=== PATIENT | male | born 1940 | race Caucasian/White ===

== ENCOUNTER 2018-09-15 08:48 | Inpatient (IN) | payer OTHER ==
[~2018-09-15] VITALS: Ht 177.8 cm; Wt 78.5 kg
--- NOTE | ~2018-09-15 | PROC ---
[address] [address] PROCEDURE REPORT Name: KASIA ZAPATA JR Room: [address]R.#: [id number] Admission: 09/15/18 Attend Phys: Tarik Faye MD, Discharge: 09/19/18 Date of : 38 Report #: [id number] THIS REPORT FOR: //name// Please refer to the History and Physical performed in the physician's office. By: 0701Medical Records Staff CHARIS /RONEY
[~2018-09-15 08:48] MED LIST: ALLOPURINOL 10100 M1 PO; ELIQUIS5 MG PO; PACERONE 200 M200 M1 PO
[2018-09-15 09:40] VITALS: BP 109/78
[2018-09-15] MEDS ORDERED: LOPRESSOR50 PO (10:44)
[2018-09-15] MEDS ORDERED: CARTIA XT180 M1 PO (10:45)
[2018-09-15] MEDS ORDERED: LYRICA 50 MG50 MG PO (10:46)
[2018-09-15] MEDS ORDERED: XALATAN2.5 ML OPHTHALMIC (10:46)
[2018-09-15] MEDS ORDERED: MULTI VITAMIN1 EACH PO (10:46)
--- NOTE | 2018-09-15 11:05 | NUR ---
ASSUMED CARE OF PT @ 0940.PT IS A/O X4,VSS,TRACING AFIB ON THE MONITOR.NEW IV INSERTED IN RIGHT FOREARM AND SALINE LOCKED.PT IS CALM AND COOPERATIVE WITH NO C/O PAIN.PICTURE TAKEN OF WOUND ON LEFT BIG TOE.PT IS UP WITH ASSIST OF ONE AND CANE.CALL LIGHT AND FALL PRECAUTIONS IN PLACE.WILL CONTINUE TO MONITOR.
[2018-09-15 11:56] VITALS: BP 120/81
--- NOTE | 2018-09-15 12:01 | NUR ---
WOUND CARE NOTE: CONSULT RECEIVED FOR WOUND TO LEFT GREAT TOE PATIENT PRESENTS WITH FULL THICKNESS NEUROPATHIC ULCER TO THE LEFT GREAT TOE AT THE PLANTAR SURFACE. PATIENT ADMITS TO THERE BEING A CALLUS THERE AND IT CAME OFF REVEALING THE ULCERATION. WOUND MEASURES 0.7X0.8X0.3. NOEMY-WOUND CALLUSED. WOUND BED IS MOIST, PINK, NON-GRANULAR. DRAINING SMALL AMOUNTS OF SEROUS DRAINAGE. CLEANSED WOUND WITH WOUND CLEANSER, PATTED DRY. APPLIED AQUACEL AG INTO WOUND BED AND SECURED WITH GAUZE THEN TAPE. APPEARS THAT PATIENT HAS HALLUX VALGUS AT THIS AREA WHICH MAY CONTRIBUTE TO THE ULCERATION IN ADDITION TO THE NEUROPATHY. EDUCATED PATIENT ON DRESSING SELECTION, COMMUNICATED UNDERSTANDING. RECOMMEND FOLLOW UP WITH POWER LINE INSTALLER FOR WOUND CARE AND CALLUS MANAGEMENT ENCOURAGE GOOD NUTRITION/HYDRATION DAILY DRESSING CHANGES DURING HOSPITAL STAY
[2018-09-15 12:08] LABS: HEMATOCRIT 42.6 % (42.0-52.0); HEMOGLOBIN 14.4 gm/dL (14.0-18.0); MCHC 33.7 g/dL (28.0-37.0); MCV 94.9 fL (80.0-100.0); MPV 8.1 fl. (7.2-11.1); NUCLEATED RBCS 0 /100WBC; PLATELET COUNT* 296 thou/uL (150-400); RBC 4.49 mil/uL (4.50-6.00); RDW-CV 14.7 % (10.5-14.5); WBC 13.1 thou/uL (4.0-11.0)
[2018-09-15 12:19] LABS: ALBUMIN 2.6 g/dL (3.4-5.0); CALCIUM 8.6 mg/dL (8.5-10.1); CREATININE 1.1 mg/dL (0.6-1.3); TOTAL BILIRUBIN 0.4 mg/dL (<0.1-1.0); TOTAL PROTEIN 6.1 g/dL (6.4-8.2)
[2018-09-15 12:55] LABS: ABSOLUTE LYMPHOCYTES 4.6 thou/uL (0.8-5.3); ABSOLUTE MONOCYTES 0.7 thou/uL (0.0-1.2); ABSOLUTE NEUTROPHILS 7.9 thou/uL (1.6-8.1)
[2018-09-15 12:56] LABS: PLATELET ESTIMATE ADEQUATE
--- NOTE | 2018-09-15 13:11 | EKG ---
[place] [address] ELECTROCARDIOGRAM REPORT Name: KASIA ZAPATA JR Room: [address] ADM IN M.R.#: [id number] Admission: 09/15/18 Attend Phys: Tarik Faye MD, Discharge: Date of : 36 Report #: [id number] THIS REPORT FOR: //name// [facility] Test Date: 2018-09-15 Test Time: 11:29:57 Pat Name: KASIA ZAPATA Department: Room: [address] Gender: M Quotation Clerk: : 1940 Requested By: Tarik Faye Order Number: [id number] Reading MD: Tarik Faye Measurements Intervals [place] Rate: 83 P: MN: QRS: -47 QRSD: 155 T: -34 QT: 374 QTc: 440 Interpretive Statements Atrial fibrillation Right bundle branch block LVH with IVCD and secondary repol abnrm Compared to ECG 06/23/2015 10:04:06 Intraventricular conduction delay now present Early repolarization now present Electronically Signed On 09-15-2018 13:11:47 CDT by Tarik Faye [email or web address] <ELECTRONICALLY SIGNED> By: Tarik Faye MD, FACC 09/15/18 1311 1129 1129 Tarik Faye MD, [facility] /EPI
--- NOTE | 2018-09-15 15:23 | 2DMMODE ---
[place] [address] 2 D/M-MODE ECHOCARDIOGRAM Name: KASIA ZAPATA JR Room: [address] IN [facility]#: [id number] Admission: 09/15/18 Attend Phys: Tonja De La Rosa Discharge: Date of : 36 Date of Service: 09/15/18 1522 Report #: [id number] THIS REPORT FOR: //name// APPROVED REPORT Study performed: 09/15/2018 13:11:27 EXAM: Comprehensive 2D, Doppler, and color-flow Echocardiogram Patient Location: In-Patient Room #: [facility] Status: routine BSA: 2.00 HR: 90 bpm BP: 109/78 mmHg Rhythm: Atrial Fibrillation Other Information Study Quality: Good Indications Atrial Fibrillation 2D Dimensions IVSd: 13.17 (7-11mm) LVOT Diam: 20.89 (18-24mm) LVDd: 40.92 mm PWd: 12.19 (7-11mm) Ascending Ao: 36.21 (22-36mm) LVDs: 35.96 (25-40mm) Aortic Root: 34.21 mm Volumes Left Atrial Volume (Systole) LA ESV Index: 51.20 mL/m2 Aortic Valve AoV Peak Kemal.: 0.90 m/s AO Peak Gr.: 3.22 mmHg LVOT Max P.03 mmHg AO Mean Gr.: 1.90 mmHg LVOT Mean P.51 mmHg LVOT Max V: 0.51 m/s AO V2 VTI: 12.21 cm LVOT Mean V: 0.33 m/s ALVARO (VTI): 2.42 cm2 LVOT V1 VTI: 8.64 cm Mitral Valve MV Decel. Time: 135.66 ms MV PHT: 39.34 ms MVA (PHT): 5.59 cm2 [place] [address] 2 D/M-MODE ECHOCARDIOGRAM Name: KASIA ZAPATA JR Room: [address] IN [facility].#: [id number] Admission: 09/15/18 Attend Phys: Tonja De La Rosa Discharge: Date of : 36 Date of Service: 09/15/18 1522 Report #: [id number] TDI Medial E' Kemal.: 0.11 m/s Lateral E' Kemal.: 0.13 m/s Pulmonary Valve PV Peak Kemal.: 0.60 m/s PV Peak Gr.: 1.43 mmHg Tricuspid Valve RAP Estimate: 5.00 mmHg TR Peak Gr.: 18.28 mmHg RVSP: 23.00 mmHg PA Pressure: 23.00 mmHg Left Ventricle The left ventricle is normal size. There is diffuse hypokinesis of left ventricular wall motion. Mild concentric left ventricular hypertrophy. Left ventricular systolic function is moderate to severely decreased. LVEF is 30%. This study is not technically sufficient to allow evaluation of the LV diastolic function due to atrial fibrillation. Right Ventricle The right ventricle is normal size. The right ventricular systolic function is normal. Atria Left atrium is moderately dilated. The right atrium size is normal. Aortic Valve Mild aortic valve sclerosis. Trace aortic regurgitation. There is no aortic valvular stenosis. Mitral Valve The mitral valve is normal in structure. Trace mitral regurgitation. No evidence of mitral valve stenosis. Tricuspid Valve The tricuspid valve is normal in structure. Mild tricuspid regurgitation. Pulmonic Valve The pulmonary valve is normal in structure. Trace pulmonic regurgitation[place] [address] 2 D/M-MODE ECHOCARDIOGRAM Name: KASIA ZAPATA JR Room: [address] IN ..#: [id number] Admission: 09/15/18 Attend Phys: Tonja De La Rosa Discharge: Date of : 36 Date of Service: 09/15/18 1522 Report #: [id number] The aortic root is normal in size. IVC is normal in size and collapses >50% with inspiration. Pericardium There is no pericardial effusion. <Conclusion> The left ventricle is normal size. Mild concentric left ventricular hypertrophy. Left ventricular systolic function is moderate to severely decreased. LVEF is 30%. This study is not technically sufficient to allow evaluation of the LV diastolic function due to atrial fibrillation. The right ventricle is normal size. Left atrium is moderately dilated. Mild aortic valve sclerosis. Trace aortic regurgitation. There is no aortic valvular stenosis. The mitral valve is normal in structure. Trace mitral regurgitation. The tricuspid valve is normal in structure. Mild tricuspid regurgitation. IVC is normal in size and collapses >50% with inspiration. There is no pericardial effusion. There is diffuse hypokinesis of left ventricular wall motion. <ELECTRONICALLY SIGNED> By: Tarik Faye MD, [facility] 09/15/18 1522 1522 1522 Tarik Faye MD, FACC /INF
[2018-09-15 15:58] VITALS: BP 119/74
--- NOTE | 2018-09-15 17:57 | NUR ---
VSS.CARDIAC MONITORING IN PLACE WITH NO CHANGES.NO C/O PAIN.IV PATENT AND SALINE LOCKED.PT SAW WOUND CARE TODAY WITH ORDERS FOR WOUND CARE OF LEFT BIG TOE.CXR,ECHO,EKG, AND CT OF HEAD AND THORACIC COMPLETED TODAY.PT INFORMED OF PLAN OF CARE AND COMMUNICATES UNDERSTANDING.PT AMBULATED IN ROOM WITH CANE AND WORKED WITH PHYSICAL THERAPY.HOURLY ROUNDING COMPLETED FOR PT SAFETY.CALL LIGHT AND FALL PRECAUTIONS IN PLACE.WILL CONTINUE TO MONITOR FOR DURATION OF SHIFT.
[2018-09-15 20:00] VITALS: BP 126/77
[2018-09-16] VITALS: BP 115/85
[2018-09-16 04:00] VITALS: BP 120/68
--- NOTE | 2018-09-16 07:45 | NUR ---
ASSUMED PT CARE AT 1930. ASSESSMENT COMPLETED CHARTED. ABLE TO MAKE NEEDS KNOWN. NO C/O PAIN OR DISCOMFORT. NOT VERY HAPPY THAT HE HAS TO BE WALKED TO THE BATHROOM, BUT PT IS UNSTEADY ON FEET AT TIMES. PT RESTING IN BED AT THIS TIME. TM.
[2018-09-16 08:00] VITALS: BP 128/87
--- NOTE | 2018-09-16 10:00 | NUR ---
RECEIVED REPORT AND ASSUMED CARE OF PT AT 0730.PT IS A/OX4.TRACING AFIB ON THE MONITOR WITH CONTROLLED RATE.UP WITH CANE.RT GREAT TOE WOUND PRESENT .DSG CHANGED.ALINA /CARDIOVERSION PLAN FOR TUESDAY.CONSENT NEEDS TO BE OBTAIN BEFORE PROCEDURE.ON RA.IV PATENT AND SALINE LOCKED.CALL LIGHT AND FALL PRECAUTIONS IN PLACE.WILL CONTINUE TO MONITOR.
[2018-09-16 12:00] VITALS: BP 110/80
[2018-09-16 16:20] VITALS: BP 101/69
--- NOTE | 2018-09-16 17:54 | NUR ---
VSS.PT PATY/OX4.TRACING AFIB ON THE MONITOR RATE CONTROLLED.ON .DSG CHANGED.PLAN ALINA/CARDIOVERSION ON TUESDAY.HEART HEALTHY DIET.UP WITH CANE.CALL LIGHT AND FALL PRECAUTION IN PLACE.HRLY ROUNDING COMPLETED.WILL CONTINUE TO MONITOR.
[2018-09-16 20:00] VITALS: BP 128/85
[2018-09-17 00:02] VITALS: BP 124/76
[2018-09-17 04:00] VITALS: BP 119/59
[2018-09-17 08:00] VITALS: BP 123/78
--- NOTE | 2018-09-17 08:00 | NUR ---
ASSUMED PT CARE AT 1930. ASSESSMENT COMPLETED CHARTED. ABLE TO MAKE NEEDS KNOWN. UP AD FRANKY, NO C/O PAIN OR DISCOMFORT. VSS. STILL TRACING AFIB ON THE MONITOR. WILL CONTINUE TO MONITOR.
[2018-09-17 12:31] VITALS: BP 126/79
--- NOTE | 2018-09-17 12:43 | CON ---
[address] [address] CONSULTATION Name: KASIA ZAPATA JR Room: [address] IN .R.#: [id number] Admission: 09/15/18 Attend Phys: Tarik Faye MD, Discharge: Date of : 38 Report #: [id number] THIS REPORT FOR: //name// CC: Tarik Deutsch NEUROLOGY CONSULTATION HISTORY OF PRESENT ILLNESS: The patient is an 78-year-old male who states he has significant difficulty with his balance. After speaking with the patient, the patient states that for the past 2 or 3 years, he has had difficulty with his feet. At one point, his feet were cold. He has also had paresthesias in the feet and sharp stabbing pains in the feet. Some of this has improved with time. Last year, the patient states he was seen at [facility] most likely by a neurologist. He had an EEG. He had an EMG. The patient was asked to discontinue amiodarone. He was told that once he discontinue this drug, the pain in his feet would improve. The patient is uncertain of what any of these tests showed; however, when the patient did discontinue amiodarone, some of the paresthesias in his feet got better. The patient states that prior to developing the shingles last fall, he had been running up to a mile a day. Now because of the shingles, he is sedentary and has been sedentary for several months. He has also been to pain management and had perhaps an intercostal block and a thoracic epidural. He states that he had 2 shots, one in the back and one in the ribs. PAST MEDICAL HISTORY: Atrial fibrillation, hypertension, gout, shingles. PAST SURGICAL HISTORY: Unremarkable. MEDICATIONS: Amiodarone 600 mg daily, Eliquis 5 mg b.i.d., Cardizem CD 180 mg daily, latanoprost at bedtime, metoprolol 50 mg b.i.d., Lyrica 75 mg b.i.d., allopurinol 200 mg daily. ALLERGIES: None. VITAL SIGNS: None recorded. LABORATORY WORK: Including a CBC and chemistry panel are pending. No imaging studies have been done. NEUROLOGIC EXAMINATION: Cranial nerves 2-12 are grossly intact. Motor exam demonstrates symmetrical strength in all 4 extremities. The patient has atrophy of the bilateral first dorsal interosseous and abductor pollicis brevis. He has diminished ankle dorsi and plantar flexion. Reflexes are trace. Plantar responses are flexor. Coordination reveals intact [id number]. Sensory exam demonstrates diminished light touch to just below the knees and he has diminished proprioception [place] [address] CONSULTATION Name: KASIA ZAPATA JR Room: [address] IN ..#: [id number] Admission: 09/15/18 Attend Phys: Tarik Faye MD, Discharge: Date of : 38 Report #: [id number] IMPRESSION: I have asked the patient to sign a release of information for the Neurology consult and any testing that was done by Dr. Miner. The patient has already had an EMG and I suspect he may have peripheral neuropathy with a component of deconditioning. I am going to order physical and occupational therapy for him. In addition, I am going to look for the most common treatable causes of neuropathy and order a B12, TSH, and serum protein electrophoresis. The patient has not had any imaging studies done. A CT scan of the head and CT scan of the thoracic spine will be done. The MRI scanner is not functioning and so these diagnostic studies will need to be done by CT scan. I thank you for your kind referral of the patient. <ELECTRONICALLY SIGNED> By: Bri Downey DO 09/17/18 1243 1025 [id number] Downey DO /nt
[2018-09-17 15:39] VITALS: BP 105/68
--- NOTE | 2018-09-17 16:34 | NUR ---
ASSUMED CARE OF PATIENT AT 0730. ALERT AND ORIENTED X 4. VITAL SIGNS STABLE ON ROOM AIR. AFIB ON MONITOR. AFEBRILE. PERRLA. UP WITH STAND BY ASSISTANCE. IV PATENT AND SALINE LOCKED. DENIES PAIN AND NAUSEA AT THIS TIME. BED LOCKED AND IN LOWEST POSITION. FALL PRECAUTIONS IN PLACE AND BED ALARM ON. HOURLY ROUNDS MAINTAINED THROUGHOUT THE SHIFT. CALL LIGHT WITHIN REACH. NURSING WILL CONTINUE TO MONITOR.
[2018-09-17 20:00] VITALS: BP 114/79
[2018-09-18] VITALS (7 sets, daily range): BP systolic 86–124; BP diastolic 51–95
--- NOTE | 2018-09-18 06:09 | NUR ---
ASSUMED PT CARE AT 1930. ASSESSMENT COMPLETED CHARTED. ABLE TO MAKE NEEDS KNOWN. UP AD FRANKY. NO C/O PAIN OR DISCOMFORT. NPO SINCE MIDNIGHT FOR ALINA AND CARDIOVERSION SINCE STILL IN AFIB. WILL CONTINUE TO MONITOR.
--- NOTE | 2018-09-18 07:25 | NUR ---
CHANGE OF SHIFT, BEDSIDE REPORT GIVEN PATIENT SEEN IN BED, ASLEEP ASSUMED PATIENT CARE
--- NOTE | 2018-09-18 11:48 | NUR ---
Pt out of room at ALINA, per nurse, Pt will likely dc later this evening.
--- NOTE | 2018-09-18 16:11 | NUR ---
WOUND NURSE: PATIENT SEEN TO ADDRESS ULCER ON THE PLANTAR SURFACE OF THE LEFT GREAT TOE. PRESENTS A SUPERFICIAL LESION WITH PARTIAL THICKNESS TISSUE LOSS AND CALLOUS TO THE PERIWOUND AREA. AFFECTED AREA MEASURES 0.8 X 0.5 X 0.1 CM; CONTAINS SMALL AMOUNT OF SEROUSANGUINOUS DRAINAGE. PATIENTS DOES NOT REPORT PAIN TO THE AFFECTED AREA. CLEANSED WITH WOUND CLEANSER AND GAUZE, THEN APPLIED AQUACEL AG TO WOUND, THEN WRAPPED WITH CONFORMING GAUZE, AND SECURED WITH TAPE. INSTRUCTED ON METHODS OF OFFLOADING AND OTHER MEASURES TO PROMOTE HEALING. PATIENT STATES HE UNDERSTANDS.
--- NOTE | 2018-09-18 17:12 | TEE ---
[place] [address] TRANSESOPHAGEAL ECHOCARDIOGRAM Name: KASIA ZAPATA JR Room: [address] IN [facility]#: [id number] Admission: 09/15/18 Attend Phys: Tonja De La Rosa Discharge: Date of : 38 Date of Service: 09/18/18 1712 Report #: [id number] THIS REPORT FOR: //name// APPROVED REPORT Study performed: 09/18/2018 11:46:48 EXAM: Transesophageal Echocardiogram Patient Location: In-Patient Room #: [facility] Status: routine BSA: 2.00 HR: 91 bpm BP: 131/93 mmHg Rhythm: Atrial Fibrillation Other Information Study Quality: Good Indications Atrial Fibrillation Echo Enhancing Agent Indication: Rule out Shunt Agent(s) / Amount(s) Used: Agitated Saline 10 cc Procedure After obtaining informed consent, patient underwent transesophageal echo in the [employer]. Type of Sedation : Conscious Sedation Sedation was administered by Iza Martinez RN. Sedation start time: 1158 Case end Time: 1210 Sedation was achieved intravenously with: Versed (4) Fentanyl (100) Transesophageal probe was inserted and advanced into esophagus without difficulty by Marcos Ramsey MD, FACC. Echo enhancement indication: R/O Septal defect. Echo enhancement agent administered: Agitated Saline The ALINA was performed without complications. Synchronized Cardioversion acheived with 300 Joules after 1 attempt(s). Rhythm following Synchronized Cardioversion: Normal Sinus Rhythm Throughout the procedure, the blood pressure, pulse oximetry, cardiac rhythm, and rate were monitored. The patient tolerated the procedure without adverse [place] [address] TRANSESOPHAGEAL ECHOCARDIOGRAM Name: KASIA ZAPATA JR Room: [address]#: [id number] Admission: 09/15/18 Attend Phys: Tonja De La Rosa Discharge: Date of : 38 Date of Service: 09/18/18 1712 Report #: [id number] from conscious sedation was uneventful and vital signs were stable. Left Ventricle The left ventricle is normal size. There is global hypokinesis of the left ventricle. There is normal left ventricular wall thickness. Left ventricular systolic function is moderate to severely decreased. LVEF is 30%. Right Ventricle The right ventricle is normal size. The right ventricular systolic function is normal. Atria Left atrium is moderately dilated. No thrombus is visualized in the left atrium or appendage. Interatrial septum is intact without evidence of ASD or PFO. The right atrium size is normal. Aortic Valve Mild aortic valve sclerosis. Trace aortic regurgitation. Mitral Valve The mitral valve is normal in structure. Mild mitral regurgitation. Tricuspid Valve Trace tricuspid regurgitation. Pulmonic Valve Pulmonic valve is not well visualized. Great Vessels The aortic root is normal in size. Pericardium There is no pericardial effusion. <Conclusion> The left ventricle is normal size. There is normal left ventricular wall thickness. Left ventricular systolic function is moderate to severely decreased. LVEF is 30%. There is global hypokinesis of the left ventricle. Left atrium is moderately dilated. No thrombus is visualized in [place] [address] TRANSESOPHAGEAL ECHOCARDIOGRAM Name: KASIA ZAPATA JR Room: [address] IN ..#: [id number] Admission: 09/15/18 Attend Phys: Tonja De La Rosa Discharge: Date of : 36 Date of Service: 09/18/181711 Report #: [id number] appendage. Interatrial septum is intact without evidence of ASD or PFO. Trace aortic regurgitation. Mild mitral regurgitation. Trace tricuspid regurgitation. <ELECTRONICALLY SIGNED> By: Marcos Ramsey MD, FACC 09/18/181711 11 11 Marcos Ramsey MD, FACC /INF
[2018-09-19] VITALS: BP 105/69
[2018-09-19 04:00] VITALS: BP 118/65
--- NOTE | 2018-09-19 05:27 | NUR ---
ASSUMED CARE OF PT AFTER REPORT AT 1930. PT A&OX4. VSS. PHSYICAL ASSESSMENT COMPLETED AND CHARTED. PT ON RA. PT TRACING SR/SB/BBB ON TELE. PT UPADLIB TO RESTROOM. PT DENIES ANY PAIN OR DISCOMFORT. PT RESTED WELL ON BED. HOURLY ROUNDING OBSERVED. CALL LIGHT WITHIN REACH.
[2018-09-19 08:00] VITALS: BP 102/69
--- NOTE | 2018-09-19 10:55 | NUR ---
RECEIVED REPORT AND ASSUMED CARE OF PT AT 0735.PT IS A/OX4.TRACING SB WITH BBB ON MONITOR.A/OX4.IV PATENT AND SALINE LOCKED.WEAKNESS ON BL LOWER EXTREMITIES PRESENT.NEURO ON BOARD.PT WAS CARDIOVERTED YESTERDAY TO AFIB.WOUND PRESENT ON RT GREAT TOE.DSG CHANGED.UP WITH WALKER/CANE.NO OTHER SKIN ISSUES.NO COMPLAINTS OF PAIN.HRLY ROUNDING COMPLETED.CALL LIGHT AND FALL PRECAUTIONS IN PLACE.WILL CONTINUE TO MONITOR.
[2018-09-19 11:50] VITALS: BP 90/53
[2018-09-19] MEDS ORDERED: PACERONE 200 M200 M1 PO (12:32)
[2018-09-19 12:47] VITALS: BP 90/53
[2018-09-19 13:07] LABS: GLOBULIN TOTAL 2.8 g/dL (2.2-3.9); M-SPIKE Not Observed g/dL (Not Observed)
[2018-09-19 13:08] VITALS: BP 90/53
--- NOTE | 2018-09-19 14:10 | NUR ---
PT OK TO DISCHARGE.ALL DISCHARGE PAPER WORK COMPLETED.DISCHARGE EDUCATION PROVIDED ON FOLLOW UP AND MEDS.NEW SCRIPTS GIVEN WITH EDUCATION PRINTED.ALL PERSONAL BELONGINGS HANDED OVER TO PT.IV AND HEART MONITOR TAKEN OUT AND RETURNED TO NURSING STATION.PT IS GETTING READY TO GO HOME WITH HIS .
--- NOTE | 2018-09-20 10:15 | D ---
[address] [address] DISCHARGE SUMMARY Name: KASIA ZAPATA JR Room: [address] IN M.R.#: [id number] Admission: 09/15/18 Attend Phys: Tarik Faye MD, Discharge: 09/19/18 Date of : 38 Report #: [id number] THIS REPORT FOR: //name// CC: Tarik Deutsch DATE OF SERVICE: 09/19/2018 FINAL DISCHARGE DIAGNOSES: 1. Persistent atrial fibrillation. 2. Nonischemic cardiomyopathy. PROCEDURES: On 09/18/2018 - ALINA/cardioversion. HOSPITAL COURSE: The patient is a very pleasant 78-year-old male with a history of recurrent atrial fibrillation. His last episode occurred associated with a prolonged episode of shingles. He did not respond to wgh-dj-plvtxmei rate modulation and demonstrated persistent atrial fibrillation with a controlled ventricular response on diltiazem and metoprolol. He was anticoagulated with Eliquis. The patient was hospitalized over the weekend and loaded with amiodarone. He underwent a ALINA cardioversion on 09/18/2018, with successful reversion to a sinus mechanism, in which he has remained. The patient is feeling a bit better, though he is still weak. 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 Therefore, I will plan to send the patient home on amiodarone, which I would plan to taper. His initial dose on discharge will be 400 mg b.i.d. with continuation of diltiazem extended release 180 mg daily and metoprolol 50 mg daily with Eliquis 5 mg b.i.d. as before. I will plan to have him see the nurse practitioner in 1 week for reduction of amiodarone dosage. I will plan to see him in 4-6 weeks with an echocardiogram at that juncture. <ELECTRONICALLY SIGNED> By: Tarik Faye MD, [facility] 09/20/18 1015 1155 1222Jooscar Faye MD, FACC /nt
== END 2018-09-19 14:18 | disposition home or self-care (01) | DRG 309 ==
LOC: M.2W 08:48
PROVIDERS: Psychiatry & Neurology Neurology; ADMIT Internal Medicine
PROC: B24BZZ4 Ultrasonography of Heart with Aorta, Transesophageal (ICD-10-PCS; principal; 2018-09-18)
PROC: 5A2204Z Restoration of Cardiac Rhythm, Single (ICD-10-PCS; principal; 2018-09-18)
DX: I48.1 Persistent atrial fibrillation (principal); I50.42 Chronic combined systolic (congestive) and diastolic (congestive) heart failure; D68.59 Other primary thrombophilia; E44.0 Moderate protein-calorie malnutrition; G61.81 Chronic inflammatory demyelinating polyneuritis; G62.9 Polyneuropathy, unspecified; I42.9 Cardiomyopathy, unspecified; I48.91 Unspecified atrial fibrillation; Z68.24 Body mass index [BMI] 24.0-24.9, adult; M10.9 Gout, unspecified; I10 Essential (primary) hypertension; Z79.899 Other long term (current) drug therapy

== ENCOUNTER → 2018-10-04 | Outpatient (CLI) | payer OTHER ==
[~2018-10-04] MED LIST changes: +CARTIA XT180 M1 PO; +LOPRESSOR50 PO; +LYRICA 50 MG50 MG PO; +MULTI VITAMIN1 EACH PO; +XALATAN2.5 ML OPHTHALMIC
--- NOTE | 2018-10-04 13:32 | 2DMMODE ---
[place] [address] 2 D/M-MODE ECHOCARDIOGRAM Name: KASIA ZAPATA JR Room: [facility]#: [id number] Admission: 10/04/18 Attend Phys: Tonja De La Rosa Discharge: Date of : 36 Date of Service: 10/04/18 1331 Report #: [id number] THIS REPORT FOR: //name// APPROVED REPORT Study performed: 10/04/2018 09:57:38 EXAM: Comprehensive 2D, Doppler, and color-flow Echocardiogram Patient Location: Out-Patient BSA: 1.95 HR: 58 bpm BP: 109/78 mmHg Other Information Study Quality: Good Indications CAD 2D Dimensions IVSd: 12.46 (7-11mm) LVOT Diam: 20.84 (18-24mm) LVDd: 47.86 mm PWd: 9.86 (7-11mm) Ascending Ao: 35.13 (22-36mm) LVDs: 30.61 (25-40mm) Aortic Root: 29.73 mm Volumes Left Atrial Volume (Systole) LA ESV Index: 26.60 mL/m2 Aortic Valve AoV Peak Kemal.: 1.14 m/s AO Peak Gr.: 5.20 mmHg LVOT Max P.11 mmHg AO Mean Gr.: 3.02 mmHg LVOT Mean P.07 mmHg LVOT Max V: 0.73 m/s AO V2 VTI: 23.28 cm LVOT Mean V: 0.48 m/s ALVARO (VTI): 2.18 cm2 LVOT V1 VTI: 14.86 cm Mitral Valve E/A Ratio: 0.72 MV Decel. Time: 300.43 ms MV E Max Kemal.: 0.41 m/s MV PHT: 87.13 ms MVA (PHT): 2.53 [place] [address] 2 D/M-MODE ECHOCARDIOGRAM Name: KASIA ZAPATA JR Room: [facility]#: [id number] Admission: 10/04/18 Attend Phys: Tonja De La Rosa Discharge: Date of : 36 Date of Service: 10/04/18 1331 Report #: [id number] TDI E/Lateral E': 5.13 E/Medial E': 6.83 Medial E' Kemal.: 0.06 m/s Lateral E' Kemal.: 0.08 m/s Pulmonary Valve PV Peak Kemal.: 0.74 m/s PV Peak Gr.: 2.21 mmHg Tricuspid Valve RAP Estimate: 5.00 mmHg TR Peak Gr.: 21.60 mmHg RVSP: 26.60 mmHg PA Pressure: 26.60 mmHg Left Ventricle The left ventricle is normal size. There is global hypokinesis of the left ventricle. There is normal left ventricular wall thickness. Left ventricular systolic function is mildly decreased. LVEF is 45-50%. Grade I - abnormal relaxation pattern. Right Ventricle The right ventricle is normal size. The right ventricular systolic function is normal. Atria The left atrium size is normal. The right atrium size is normal. Aortic Valve Mild aortic valve sclerosis. Mild aortic regurgitation. There is no aortic valvular stenosis. Mitral Valve The mitral valve is normal in structure. Mild mitral regurgitation. No evidence of mitral valve stenosis. Tricuspid Valve The tricuspid valve is normal in structure. Mild tricuspid regurgitation. estimate pa pressure 30 mm Hg Pulmonic Valve The pulmonary valve is normal in structure. Mild pulmonic regurgitation. Great Vessels The aortic root is normal in size. IVC [place] [address] 2 D/M-MODE ECHOCARDIOGRAM Name: KASIA ZAPATA JR Room: [facility]#: [id number] Admission: 10/04/18 Attend Phys: Tonja De La Rosa Discharge: Date of : 36 Date of Service: 10/04/18 1331 Report #: [id number] collapses >50% with inspiration. Pericardium There is no pericardial effusion. <Conclusion> LVEF is 45-50%. Mild aortic regurgitation. Mild mitral regurgitation. Mild aortic valve sclerosis. <ELECTRONICALLY SIGNED> By: Etienne Adams MD, [facility] 10/04/18 133 133 30 Etienne Adams MD, [facility] /INF
== END ==
LOC: M.CRD 09:43
DX: I08.8 Other rheumatic multiple valve diseases (principal); I25.10 Atherosclerotic heart disease of native coronary artery without angina pectoris; I50.1 Left ventricular failure, unspecified

== ENCOUNTER 2019-05-14 07:33 | Observation (INO) | payer OTHER ==
[2019-05-14] VITALS (7 sets, daily range): BP systolic 102–177; BP diastolic 60–90
[~2019-05-14] VITALS: Ht 177.8 cm; Wt 81.6 kg
[2019-05-14 08:16] LABS: HEMATOCRIT 45.2 % (42.0-52.0); HEMOGLOBIN 15.5 gm/dL (14.0-18.0); MCH 32.8 pg (26.0-34.0); MCHC 34.4 g/dL (28.0-37.0); MCV 95.3 fL (80.0-100.0); MPV 8.2 fl. (7.2-11.1); RBC 4.74 mil/uL (4.50-6.00); RDW-CV 13.7 % (10.5-14.5)
[2019-05-14 08:22] LABS: ANION GAP 11 mmol/L (7-16); BUN 15 mg/dL (7-18); CALCIUM 8.4 mg/dL (8.5-10.1); CHLORIDE 103 mmol/L (98-107); CO2 25 mmol/L (21-32); CREATININE 1.3 mg/dL (0.6-1.3); GLUCOSE 167 mg/dL (70-99); POTASSIUM 3.8 mmol/L (3.5-5.1); SODIUM 139 mmol/L (136-145)
[2019-05-14 08:33] LABS: ALBUMIN 3.4 g/dL (3.4-5.0); ALKALINE PHOSPHATASE 98 U/L (46-116); CHOLESTEROL 180 mg/dL (<200); HDL CHOLESTEROL 42 mg/dL (>40); LDL CHOLESTEROL 113 mg/dL (<100); SGOT 40 U/L (15-37); SGPT 50 U/L (30-65); TC:HDL 4.3 Ratio (Not establshd); TOTAL BILIRUBIN 0.4 mg/dL (<0.1-1.0); TOTAL PROTEIN 7.5 g/dL (6.4-8.2); TRIGLYCERIDE 129 mg/dL (<150); VLDL 26 mg/dL (<40)
[2019-05-14 08:41] LABS: SERUM ASSESSMENT Clear
--- NOTE | 2019-05-14 17:12 | EKG ---
[place] [address] ELECTROCARDIOGRAM REPORT Name: KASIA ZAPATA JR Room: [address] M.R.#: [id number] Admission: 05/14/19 Attend Phys: Tarik Faye MD, Discharge: Date of : 36 Report #: [id number] THIS REPORT FOR: //name// [facility] Test Date: 2019-05-14 Test Time: 08:10:52 Pat Name: KASIA ZAPATA Department: Room: [facility] Gender: M Document Image Technician: : 1940 Requested By: Tarik Faye Order Number: [id number] Jose MD: Marcos Ramsey Measurements Intervals [place] Rate: 66 P: 35 OR: 166 QRS: -55 QRSD: 166 T: -15 QT: 472 QTc: 495 Interpretive Statements Sinus rhythm Right bundle branch block Left anterior fascicular block Borderline prolonged QT interval Compared to ECG 09/15/2018 11:29:57 Atrial fibrillation no longer present Electronically Signed On 05-14-2019 17:11:33 MANUFACTURING ASSISTANT by Marcos Ramsey [email or web address] <ELECTRONICALLY SIGNED> By: Marcos Ramsey MD, FACC 05/14/19 1711 0810 0810 Marcos Ramsey MD, [facility] /EPI
--- NOTE | 2019-05-14 17:14 | EKG ---
[place] [address] ELECTROCARDIOGRAM REPORT Name: KASIA ZAPATA JR Room: [address] M.R.#: [id number] Admission: 05/14/19 Attend Phys: Tarik Faye MD, Discharge: Date of : 36 Report #: [id number] THIS REPORT FOR: //name// [facility] Test Date: 2019-05-14 Test Time: 11:46:44 Pat Name: KASIA ZAPATA Department: Room: [facility] Gender: M Flooring Sales Manager: : 1940 Requested By: Tarik Faye Order Number: [id number] Jose MD: Marcos Ramsey Measurements Intervals [place] Rate: 72 P: 43 [place]: 159 QRS: -57 QRSD: 164 T: -38 QT: 490 QTc: 537 Interpretive Statements Sinus rhythm Right bundle branch block Left anterior fascicular block Prolonged QT interval Compared to ECG 09/15/2018 11:29:57 Prolonged QT interval now present Atrial fibrillation no longer present Electronically Signed On 05-14-2019 17:14:00 USED BUILDING MATERIALS YARD WORKER by Marcos Ramsey [email or web address] <ELECTRONICALLY SIGNED> By: Marcos Ramsey MD, FACC 05/14/19 1714 1146 1146 Marcos Ramsey MD, [facility] /EPI
[2019-05-15 04:17] LABS: HEMATOCRIT 42.1 % (42.0-52.0); HEMOGLOBIN 14.1 gm/dL (14.0-18.0); MCHC 33.5 g/dL (28.0-37.0); MCV 95.6 fL (80.0-100.0); MPV 8.2 fl. (7.2-11.1); RBC 4.41 mil/uL (4.50-6.00); RDW-CV 13.6 % (10.5-14.5); WBC 15.7 thou/uL (4.0-11.0)
[2019-05-15 04:35] LABS: ALBUMIN 3.2 g/dL (3.4-5.0); CALCIUM 8.1 mg/dL (8.5-10.1); CREATININE 1.2 mg/dL (0.6-1.3); POTASSIUM 4.2 mmol/L (3.5-5.1); TOTAL BILIRUBIN 0.5 mg/dL (<0.1-1.0); TOTAL PROTEIN 6.8 g/dL (6.4-8.2); TROPONIN-I LEVEL 0.1 ng/mL (<0.06)
[2019-05-15 08:41] VITALS: BP 146/85
[2019-05-15 08:43] VITALS: BP 146/85
[2019-05-15] MEDS ORDERED: BRILINTA90 MG PO (12:18)
[2019-05-15] MEDS ORDERED: NITROSTAT0.4 M1 SUBLING (12:21)
--- NOTE | 2019-05-15 14:38 | EKG ---
[place] [address] ELECTROCARDIOGRAM REPORT Name: KASIA ZAPATA JR Room: [address] M.R.#: [id number] Admission: 05/14/19 Attend Phys: Tarik Faye MD, Discharge: 05/15/19 Date of : 36 Report #: [id number] THIS REPORT FOR: //name// [facility] Test Date: 2019-05-15 Test Time: 08:35:29 Pat Name: KASIA PERRINUGHN Department: Room: [facility] Gender: M Machine Sneller: : 1940 Requested By: Tarik Faye Order Number: [id number] Jose MD: Marcos Ramsey Measurements Intervals [place] Rate: 79 P: 47 [place]: 162 QRS: -62 QRSD: 155 T: -33 QT: 416 QTc: 477 Interpretive Statements Sinus rhythm RBBB and LAFB Compared to ECG 05/14/2019 11:46:44 Early repolarization now present Prolonged QT interval no longer present Electronically Signed On 05-15-2019 14:37:37 ULTIMATE HOOPS TRAINER by Marcos Ramsey [email or web address] <ELECTRONICALLY SIGNED> By: Marcos Ramsey MD, [facility] 05/15/19 1437 0835 0835 Marcos Ramsey MD, [facility] /EPI
--- NOTE | 2019-05-15 16:05 | D ---
[address] [address] DISCHARGE SUMMARY Name: KASIA ZAPATA JR Room: [address] Nirmal Still#: [id number] Admission: 05/14/19 Attend Phys: Tarik Faye MD, Discharge: 05/15/19 Date of : 36 Report #: [id number] THIS REPORT FOR: //name// CC: Tarik Deutsch DATE OF SERVICE: 05/15/2019 FINAL DISCHARGE DIAGNOSES: 1. Abnormal nuclear stress test. 2. Coronary artery disease. 3. Status post percutaneous coronary left anterior descending and first diagonal. 4. Persistent atrial fibrillation. 5. Hypertension. 6. Cardiomyopathy. PROCEDURES: 1. 05/14/2019, left heart catheterization, selective coronary arteriography and percutaneous coronary intervention of the left anterior descending and first diagonal with 3 drug-eluting stents deployed. The patient is a very pleasant and active 78-year-old male with a history of persistent atrial fibrillation and cardiomyopathy. Recently, he has noted some dyspnea on exertion and nuclear stress test revealed significant inducible ischemia. In this context, cardiac catheterization was performed, which revealed 80% mid LAD stenosis with 90% first diagonal stenosis. I placed 2 stents in the LAD and one in the diagonal with 0 and 10% residual narrowings and ALEXSANDER 3 flow of the distal vessel. The patient did well post-procedural with an inconsequential increase in troponin to 0.10. Cholesterol was 180, triglycerides 129, HDL 42, LDL 113. Sodium 138, potassium 4.2, BUN 10, creatinine 1.2, glucose 127. DISCHARGE MEDICATIONS: He ambulated in the hallways without difficulty and was discharged to home on allopurinol 200 mg daily, amiodarone 200 mg every other day, apixaban 5 mg b.i.d. to be resumed on 05/16/2019, aspirin 81 mg daily for 2 days, then to be held, diltiazem extended release 180 mg at bedtime, latanoprost eyedrops 1 drop daily, metoprolol tartrate 25 mg daily, multivitamin tablet 1 tablet daily, ticagrelor or Brilinta 90 mg b.i.d., and p.r.n. sublingual nitroglycerin. The patient is scheduled to return to see my nurse practitioner on 05/22/2019 at 1300 at the [place] office and scheduled to return to see me on 06/26/2019 at 1100 at the [facility] [address] DISCHARGE SUMMARY Name: KASIA ZAPATA JR [address] [id number] Admission: 05/14/19 Attend Phys: Tarik Faye MD, Discharge: 05/15/19 Date of : 36 Report #: [id number] Therefore, the patient is discharged to home in stable condition on the aforementioned medications with followup as iterated above. Discharge time is 35 minutes from 11:15 to 11:50 on 05/15/2019. <ELECTRONICALLY SIGNED> By: Tarik Faye MD, FACC 05/15/19 1605 1152 1210Jooscar Faye MD, FACC /nt
--- NOTE | 2019-05-17 13:25 | CARD ---
[address] [address] CARDIAC CATH REPORT Name: KASIA ZAPATA JR Room: [address] Nirmal Still#: [id number] Admission: 05/14/19 Attend Phys: Tarik Faye MD, Discharge: 05/15/19 Date of : 36 Report #: [id number] THIS REPORT FOR: //name// APPROVED REPORT Study performed: 05/14/2019 08:42:50 Patient Details Patient Status: Out-Patient Room #: The patient is a 78 year-old male Event Personnel Carlos Eduardo Mendoza RTR Monitor, Andie Ma RN, Jeb Huynh Holkins, John Business Process Coordinator Procedures Performed Left Heart Cath w/or w/o Coronaries [id number] [facility] THOM Place w/wo Plasty Addl BR DIAG [address] w/wo Plasty Single LAD 517108 Hemostasis w/ Angioseal Indication Dyspnea, Positive stress test Risk Factors Hypercholesterolemia Admission/Lab Medications/Medications given during procedure Fentanyl IV 25 mcg, Midazolam (Versed) IV 1 mg, Lidocaine Subcut 20 ml, Angiomax IV 12 ml, Angiomax IV 28.7 ml per hr, Nitroglycerin IC 200 mcg, Angiomax IV 4 ml, Hydralazine (Apresoline) IV 10 mg, Aspirin PO 162 mg, Ticagrelor PO 180 mg Procedure Narrative The patient was brought electively to the Cardiac Catheterization Laboratory and was prepped and draped in a sterile manner. The left femoral was infiltrated with 2% Lidocaine subcutaneous anesthesia. A [place] 6 FR sheath was inserted into the left femoral artery. Coronary angiography was performed using coronary diagnostic catheters. The right coronary system was accessed and visualized with a Diagnostic JR4 6Fr catheter. The left coronary system was accessed and visualized with a Diagnostic JL4 6Fr catheter. The left ventricle was accessed and visualized with a Diagnostic Pigtail St 6Fr catheter. Left ventricular/Aortic Valve gradient assessed via catheter pullback. Left ventriculogram was performed in PAZ projection. Pre-demployment femoral angiogram was [place] [address] CARDIAC CATH REPORT Name: KASIA ZAPATA JR [address]: [address] [id number] Admission: 05/14/19 Attend Phys: Tarik Faye MD, Discharge: 05/15/19 Date of : 38 Report #: [id number] device was deployed with a 6 Fr Angioseal STS 6Fr. The patient tolerated the procedure well and there were no complications associated with the procedure. There was no hematoma. Intraoperative Conscious Sedation Sedation start time: 0950 Case end Time: 1058 Fentanyl 75 mcg Versed 1 mg Fluoro Time: 16.7 minutes Dose: DAP 799875 cGycm2 2431.88 mGy Contrast Type and Amount: Visipaque 425 ml Diagnostic Cath Left Main 0% narrowing LAD 30% proximal LAD narrowing with 80% tubular mid LAD stenosis and 50% distal LAD narrowing Diagonal 1 90% first diagonal stenosis Circumflex 20 percent ostial circumflex narrowing Right Coronary dominant vessel with 20% proximal narrowing Left Ventriculography The left ventricle is normal in size with normal contractility. The left ventricular ejection fraction is estimated to be 55%. Left ventricular wall motion abnormalities are not present. There is nono mitral insufficiency. Hemodynamics The aortic pressure is 176/76 mmHg with a mean of 111 mmHg. The left ventricular pressure is 170/0 mmHg with a mean of mmHg. The left ventricular end diastolic pressure is 8 mmHg. PCI Technique Lesion Anticoagulation was achieved with Angiomax. Percutaneous coronary intervention was performed on the mid left anterior descending artery segment. The lesion stenosis prior to intervention was 80% with ALEXSANDER 2 flow. A 6F XB LAD 3.5 Guide Catheter was used to engage the Left ostium. A IG: ProwaterFlex 180CM Interventional Guidewire was used to cross the lesion. BALLOON DILATION A Balloon catheter Trek RX 2.25 X 12 was inserted and inflated up to 12.00atm for 10seconds. Additional Inflation: 12.00atm for 8seconds. Additional Inflation: 14.00atm for 10seconds. [place] [address] CARDIAC CATH REPORT Name: KASIA ZAPATA JR Room: [address] Nirmal Still#: [id number] Admission: 05/14/19 Attend Phys: Tarik Faye MD, Discharge: 05/15/19 Date of : 38 Report #: [id number] A drug-eluting stent Xience Joanie 2.25X28 was inserted and inflated up to 12.00atm for 11seconds. Additional Inflation: 14.00atm for 7seconds. Final angiography reveals 0 % stenosis with ALEXSANDER 3 flow. STENT DEPLOYMENT A drug-eluting stent Xience Joanie 2.5X8mm was inserted and inflated up to 10.00atm for 10seconds. Additional Inflation: 12.00atm for 4seconds. POST STENT DEPLOYMENT BALLOON DILATION A Balloon catheter NC Euphora 2.5x12 was inserted and inflated up to 10.00atm for 6seconds. Additional Inflation: 12.00atm for 9seconds. Additional Inflation: 14.00atm for 14seconds. PCI Technique Lesion 2 Percutaneous Coronary Intervention was performed on the first diagnonal branch segment. The lesion stenosis prior to intervention was 90% with ALEXSANDER 3 flow. A 6F XB LAD 3.5 Guide Catheter was used to engage the Left ostium. A IG: ProwaterFlex 180CM Interventional Guidewire was used to cross the lesion. Balloon Dilation A Balloon catheter Mini Trek RX 2.0 X 8 was inserted and inflated up to 12.00atm for 10seconds. Additional Inflation: 16.00atm for 10seconds. Additional Inflation: 17.00atm for 9seconds. Stent Deployment A drug-eluting stent [place] RX Stent 2.0X8mm was inserted and inflated up to 8.00atm for 8seconds. Additional Inflation: 9.00atm for 4seconds. Final angiography reveals 10 % stenosis with ALEXSANDER 3 flow. Conclusion #1 significant coronary artery disease characterized by the following: A 30% proximal LAD narrowing with 80% tubular mid vessel stenosis and 50% distal narrowing; there was 90% stenosis of the first diagonal branch B 20% ost[place] [address] CARDIAC CATH REPORT Name: KASIA ZAPATA JR Room: [facility] Tessy#: [id number] Admission: 05/14/19 Attend Phys: Tarik Faye MD, Discharge: 05/15/19 Date of : 38 Report #: [id number] C 20% proximal right coronary narrowing #2 normal left ventricular systolic function, estimate ejection fraction being 55% #3 moderate systemic systolic hypertension #4 successful percutaneous coronary intervention with deployment drug-eluting stents at the sites of 80% mid LAD stenosis and 90% first diagonal stenosis with 0 and 10% residual narrowings and ALEXSANDER-3 flow to the distal circulation Recommendations Cardiac Risk Reduction Program Medications Administered Aspirin (any) Ticagrelor Diagnostic Cath Approved by: Tarik Faye MD Date/Time: 05/17/2019 13:21:33 <ELECTRONICALLY SIGNED> By: Tarik Faye MD, FAC 05/17/19 1324 1324 1324Tarik Faye MD, FAC /INF
--- NOTE | 2019-05-19 10:31 | H ---
[place] [address] HISTORY AND PHYSICAL Name: KASIA ZAPATA JR Room: [address] Nirmal Still#: [id number] Admission: 05/14/19 Attend Phys: Tarik Faye MD, Discharge: 05/15/19 Date of : 36 Report #: [id number] THIS REPORT FOR: //name// CC: Tarik Deutsch DATE OF SERVICE: 05/14/2019 PROPOSED DATE OF ADMISSION: 05/14/2019 Dr. Faey dictating for admission through outpatient for cardiac catheterization on 05/14/2019. HISTORY OF PRESENT ILLNESS: The patient is a very pleasant 78-year-old male with a history of paroxysmal atrial fibrillation. It ultimately became persistent and he required amiodarone and cardioversion. His ejection fraction decreased to a range of 30% in the context of the persistent atrial fibrillation. Most recent ejection fraction was 45% with septal wall motion abnormalities. His amiodarone was decreased from 200 to 100 mg a day on 01/30/2019. He had experienced dyspnea, but no clear chest discomfort on exertion. Nuclear stress test was performed in this context and there was a large inducible inferior defect, suggesting a prominent area of inferior ischemia. MEDICATIONS: At this point include allopurinol 100 mg 2 tablets daily, amiodarone 200 mg p.o. every other day, Eliquis 5 mg b.i.d., to be held for 48 hours prior to the procedure, diltiazem extended release 180 mg daily, Xalatan eyedrops, lisinopril 2.5 mg daily, metoprolol succinate 25 mg daily and multivitamin. PAST MEDICAL HISTORY: Remarkable for hypertension, persistent atrial fibrillation, and shingles. SOCIAL HISTORY: He is a former smoker. FAMILY HISTORY: Remarkable for no specific cardiac disease. PHYSICAL EXAMINATION: GENERAL: Reveals a somewhat frail-appearing elderly male. VITAL SIGNS: Blood pressure 120/75, pulse rate 62, respirations 18 per minute. NECK: Jugular venous pressure is normal. CHEST: Clear. CARDIAC: Reveals normal first and second heart sounds without rubs, murmurs, clicks or gallops. ABDOMEN: [place] [address] HISTORY AND PHYSICAL Name: ZAPATAKASIA Flynn JR Room: [address]#: [id number] Admission: 05/14/19 Attend Phys: Tarik Faye MD, Discharge: 05/15/19 Date of : 38 Report #: [id number] EXTREMITIES: Without edema with intact peripheral pulses. IMPRESSION: 1. Recently abnormal nuclear stress test with a large inducible inferior defect. 2. Dyspnea on exertion. 3. History of atrial fibrillation, controlled on amiodarone. 4. Hypertension. 5. Right bundle branch block. 6. Cardiomyopathy. RECOMMENDATIONS: Given the recent markedly abnormal nuclear stress test in the context of dyspnea and LV dysfunction, I would recommend proceeding with cardiac catheterization to document the magnitude of coronary artery disease and prospects for subsequent therapeutic modification. Eliquis has been held for 48 hours prior to the procedure in anticipation of proceeding with cardiac catheterization and if possible coronary intervention. <ELECTRONICALLY SIGNED> By: Tarik Faye MD, FACC 05/19/19 1031 1308 1334Tarik Faye MD, FACC /nt
== END 2019-05-15 13:00 | disposition home or self-care (01) ==
LOC: M.CL 07:33 → M.TBA-CV 11:12 → M.ICU 11:12
PROVIDERS: ADMIT Internal Medicine
DX: I25.10 Atherosclerotic heart disease of native coronary artery without angina pectoris (principal); R94.39 Abnormal result of other cardiovascular function study; I10 Essential (primary) hypertension; I42.9 Cardiomyopathy, unspecified; I48.91 Unspecified atrial fibrillation; Z87.891 Personal history of nicotine dependence

== ENCOUNTER → 2019-05-22 | Outpatient (CLI) | payer OTHER ==
[~2019-05-22] MED LIST changes: +BRILINTA90 MG PO; +NITROSTAT0.4 M1 SUBLING
[2019-05-22 15:00] LABS: ABSOLUTE BASOPHILS 0.1 thou/uL (0.0-0.2); ABSOLUTE EOSINOPHILS 0.2 thou/uL (0.0-0.7); ABSOLUTE LYMPHOCYTES 2.5 thou/uL (0.8-5.3); ABSOLUTE MONOCYTES 0.9 thou/uL (0.0-1.2); ABSOLUTE NEUTROPHILS 10.4 thou/uL (1.6-8.1); BASOPHILS 0.8 %; EOSINOPHILS 1.4 %; HEMATOCRIT 45.7 % (42.0-52.0); HEMOGLOBIN 15.6 gm/dL (14.0-18.0); LYMPHOCYTES 17.7 %; MCH 32.9 pg (26.0-34.0); MCHC 34.2 g/dL (28.0-37.0); MCV 96.1 fL (80.0-100.0); MONOCYTES 6.5 %; NUCLEATED RBCS 0 /100WBC; PLATELET COUNT* 352 thou/uL (150-400); POLYS 73.6 %; RBC 4.76 mil/uL (4.50-6.00); RDW-CV 13.5 % (10.5-14.5); WBC 14.1 thou/uL (4.0-11.0)
== END ==
LOC: M.RAD 14:21
PROVIDERS: Nurse Practitioner
DX: I25.10 Atherosclerotic heart disease of native coronary artery without angina pectoris (principal); I42.8 Other cardiomyopathies; I51.7 Cardiomegaly; I48.0 Paroxysmal atrial fibrillation; Z79.899 Other long term (current) drug therapy

== ENCOUNTER → 2020-05-28 | Outpatient (CLI) | payer OTHER ==
[~2020-05-28] MED LIST changes: +LIPITOR 20 MG T20 M1 PO; +PACERONE100 MG PO
--- NOTE | ~2020-05-28 | EKG ---
[place] [address] ELECTROCARDIOGRAM REPORT Name: KASIA ZAPATA JR Room: [facility]#: [id number] Admission: 05/28/20 Attend Phys: Tonja De La Rosa Discharge: Date of : 36 Date of Service: 05/28/20 1444 Report #: [id number] THIS REPORT FOR: //name// [facility] Test Date: 2020-05-28 Test Time: 14:44:18 Pat Name: KASIA ZAPATA Department: Room: Gender: Spray Pilot: : 1940 Requested By: Tarik Fyae Order Number: [id number] Reading MD: Measurements Intervals [address] Rate: 82 P: 23 [place]: 164 QRS: -49 QRSD: 162 T: -23 QT: 433 QTc: 506 Interpretive Statements Sinus rhythm RBBB and LAFB Left ventricular hypertrophy Compared to ECG 05/15/2019 08:35:29 Left ventricular hypertrophy now present [email or web address] By: 1444 1444 Epiphany [facility]any, /EPI
[2020-05-28 13:08] LABS: HEMATOCRIT 43.7 % (42.0-52.0); HEMOGLOBIN 14.4 gm/dL (14.0-18.0); MCH 32.2 pg (26.0-34.0); MCHC 32.9 g/dL (28.0-37.0); MCV 97.9 fL (80.0-100.0); MPV 7.8 fl. (7.2-11.1); RBC 4.46 mil/uL (4.50-6.00); RDW-CV 14.1 % (10.5-14.5); WBC 13.3 thou/uL (4.0-11.0)
[2020-05-28 13:24] LABS: CALCIUM 9.1 mg/dL (8.5-10.1); CREATININE 1.3 mg/dL (0.6-1.3); POTASSIUM 4.6 mmol/L (3.5-5.1)
[2020-05-28 13:26] LABS: INR 1.1; PROTIME 11.3 Seconds (9.20-11.50)
[2020-05-28 13:29] LABS: ALBUMIN 3.2 g/dL (3.4-5.0); TOTAL BILIRUBIN 0.6 mg/dL (<0.1-1.0); TOTAL PROTEIN 6.8 g/dL (6.4-8.2)
[2020-05-28 13:55] VITALS: BP 124/91
[2020-05-28 13:57] VITALS: BP 123/82
[2020-05-28 14:00] VITALS: BP 121/76
[2020-05-28 14:15] VITALS: BP 118/79
--- NOTE | 2020-05-28 15:36 | EKG ---
[place] [address] ELECTROCARDIOGRAM REPORT Name: KASIA ZAPATA JR Room: [facility]#: [id number] Admission: 05/28/20 Attend Phys: Tonja De La Rosa Discharge: Date of : 36 Date of Service: 05/28/20 1444 Report #: [id number] THIS REPORT FOR: //name// [facility] Test Date: 2020-05-28 Test Time: 14:44:18 Pat Name: KASIA ZAPATA Department: Room: Gender: Ball Winder: : 1940 Requested By: Tarik Faye Order Number: [id number] Jose MD: Tarik Faye Measurements Intervals [place] Rate: 82 P: 23 [place]: 164 QRS: -49 QRSD: 162 T: -23 QT: 433 QTc: 506 Interpretive Statements Sinus rhythm RBBB and LAFB Left ventricular hypertrophy Compared to ECG 05/15/2019 08:35:29 Left ventricular hypertrophy now present Electronically Signed On 05-28-2020 15:36:24 TEST CASE DEVELOPER by Tarik Faye [email or web address] <ELECTRONICALLY SIGNED> By: Tarik Faye MD, [facility] 05/28/20 1536 1444 1444 Tarik Faye MD, [facility] /EPI
--- NOTE | 2020-05-29 09:41 | CARD ---
[address] [address] CARDIAC CATH REPORT Name: BENNYKASIA Judson Room: [facility]#: [id number] Admission: 05/28/20 Attend Phys: Tarik Faye MD, Discharge: Date of : 36 Report #: [id number] THIS REPORT FOR: cc: Joshua Deutsch Timothy J. ~ Tarik Faye MD [facility] DATE OF SERVICE: 05/28/2020 PROCEDURE: DC cardioversion. TECHNIQUE: The patient was in the Cardiology Suite and was noted to demonstrate atrial flutter with a mildly tachycardic ventricular response. He had received his morning Eliquis and amiodarone 200 mg. We achieved sedation with 2 mg of Versed and 50 mcg of fentanyl. With appropriate sedation having been achieved, patches located in AP location, we delivered 200 watt seconds x 1 with the rhythm reverting from atrial flutter to sinus rhythm at a normal rate. He remained in sinus rhythm and gradually returned to normal state of consciousness. The patient remained in sinus rhythm documented by EKG. IMPRESSION: Successful DC cardioversion with the rhythm reverting from atrial flutter with a mildly tachycardic response to sinus rhythm at a normal rate. <ELECTRONICALLY SIGNED> By: Tarik Faye MD, [facility] 05/29/20 0941 1412 1448Jooscar Fyae MD, MICHAELC /nt
== END | disposition home or self-care (01) ==
LOC: M.CL 11:54
PROVIDERS: ATTEND Internal Medicine
DX: I48.92 Unspecified atrial flutter (principal); I47.2 Ventricular tachycardia; I48.91 Unspecified atrial fibrillation; Z98.890 Other specified postprocedural states; Z79.899 Other long term (current) drug therapy; Z79.01 Long term (current) use of anticoagulants

== ENCOUNTER → 2020-06-25 | Outpatient (CLI) | payer OTHER ==
[~2020-06-25] MED LIST changes: +PACERONE200 MG PO
[2020-06-25 11:24] VITALS: BP 115/84
[2020-06-25 11:53] LABS: CALCIUM 8.7 mg/dL (8.5-10.1); CREATININE 1.4 mg/dL (0.6-1.3); POTASSIUM 4.5 mmol/L (3.5-5.1)
[2020-06-25 12:02] LABS: ALBUMIN 3.3 g/dL (3.4-5.0); TOTAL BILIRUBIN 0.5 mg/dL (<0.1-1.0); TOTAL PROTEIN 6.8 g/dL (6.4-8.2)
[2020-06-25 12:10] VITALS: BP 102/79
[2020-06-25 12:13] VITALS: BP 111/82
--- NOTE | 2020-06-25 15:36 | EKG ---
[place] [address] ELECTROCARDIOGRAM REPORT Name: KASIA ZAPATA JR Room: [facility]#: [id number] Admission: 06/25/20 Attend Phys: Tonja De La Rosa Discharge: Date of : 36 Date of Service: 06/25/20 1119 Report #: [id number] THIS REPORT FOR: //name// [facility] Test Date: 2020-06-25 Test Time: 11:19:15 Pat Name: KASIA ZAPATA Department: Room: Gender: Vault Maker: : 1940 Requested By: Tarik Faye Order Number: [id number] Reading MD: Tarik Faye Measurements Intervals [place] Rate: 126 P: [place]: QRS: -56 QRSD: 167 T: -22 QT: 392 QTc: 568 Interpretive Statements Probable atrial flutter with 2-1 intraventricular conduction block RBBB and LAFB LVH with secondary repolarization abnormality Baseline wander in lead(s) V5 Compared to ECG 05/28/2020 14:44:18 Atrial flutter with 2-1 block noted Early repolarization now present Sinus rhythm no longer present Electronically Signed On 06-25-2020 15:36:31 CORPORATE GIVING MANAGER by Tarik Faye [email or web address] <ELECTRONICALLY SIGNED> By: Tarik Faye MD, [facility] 06/25/20 1536 1119 1119 Tarik Faye MD, [facility] /EPI
--- NOTE | 2020-06-25 15:37 | EKG ---
[place] [address] ELECTROCARDIOGRAM REPORT Name: KASIA ZAPATA JR Room: [facility]#: [id number] Admission: 06/25/20 Attend Phys: Tonja De La Rosa Discharge: Date of : 36 Date of Service: 06/25/20 1320 Report #: [id number] THIS REPORT FOR: //name// [facility] Test Date: 2020-06-25 Test Time: 13:20:41 Pat Name: KASIA ZAPATA Department: Room: Gender: Genetic Counselor: : 1940 Requested By: Tarik Faye Order Number: [id number] Jose MD: Tarik Faye Measurements Intervals [place] Rate: 82 P: 33 [place]: 169 QRS: -53 QRSD: 171 T: -72 QT: 442 QTc: 517 Interpretive Statements Sinus rhythm Right bundle branch block LVH with IVCD and secondary repol abnrm Prolonged QT interval Compared to ECG 06/25/2020 11:19:15 Intraventricular conduction delay persists Prolonged QT interval now present Atrial flutter no longer present Electronically Signed On 06-25-2020 15:37:34 ACCOUNTING SUPERVISOR by Tarik Faye [email or web address] <ELECTRONICALLY SIGNED> By: Tarik Faye MD, FAC 06/25/20 1537 1320 1320 Tarik Faye MD, FAC /EPI
--- NOTE | 2020-06-28 12:26 | CARD ---
[address] [address] CARDIAC CATH REPORT Name: ZAPATAKASIA Flynn JR Room: [facility]#: [id number] Admission: 06/25/20 Attend Phys: Tarik Faye MD, Discharge: Date of : 36 Report #: [id number] THIS REPORT FOR: cc: Joshua Deutsch Timothy J. ~ Tarik Faye MD [facility] DATE OF SERVICE: 06/25/2020 PROCEDURE: DC cardioversion. TECHNIQUE: The patient was brought to the Cardiology suite. He was noted to be in atrial flutter with 2:1 block with a ventricular response of 126. He was sedated with 2 mg of Versed and 50 mcg of fentanyl. Adequate degree of sedation was achieved. He was stable hemodynamically and continued to demonstrate atrial flutter with a 2:1 block. Oxygen saturations were in the mid 90s. We proceeded with DC cardioversion utilizing 200 joules x 1 with rhythm reverting from atrial flutter with 2:1 block to sinus rhythm at a rate of approximately 80. He remained in this rhythm. He was allowed to awaken from his level of sedation to a normal degree of consciousness and sinus rhythm persisted. The patient was discharged to home in stable condition on amiodarone, Eliquis and diltiazem. I will plan to see him in 2 weeks and then will be continuing assessment by Dr. Can of the electrophysiology service with consideration of atrial flutter ablation. <ELECTRONICALLY SIGNED> By: Tarik Faye MD, FACC 06/28/20 1226 1425 1735Jooscar Faye MD, FACC /nt
== END | disposition home or self-care (01) ==
LOC: M.CL 10:54
PROVIDERS: ATTEND Internal Medicine
DX: I48.92 Unspecified atrial flutter (principal); I48.91 Unspecified atrial fibrillation; R94.39 Abnormal result of other cardiovascular function study; Z98.890 Other specified postprocedural states; Z79.899 Other long term (current) drug therapy; Z79.01 Long term (current) use of anticoagulants